=== PATIENT | female | born 1995 ===

== ENCOUNTER 2020-07-28 10:48 | Emergency (ER) | payer OTHER ==
[~2020-07-28] VITALS: Ht 157.5 cm; Wt 57.7 kg
[2020-07-28 11:19] VITALS: BP 118/78
== END 2020-07-28 11:35 | disposition home or self-care (01) ==
LOC: ER 10:49
DX: J06.9 Acute upper respiratory infection, unspecified (principal); Z20.828 Contact with and (suspected) exposure to other viral communicable diseases
CPT/HCPCS: 36415; 99281